=== PATIENT | male | born 1960 | race Caucasian/White ===

== ENCOUNTER 2017-10-20 22:00 | Emergency (ER) | payer MEDICAID, OTHER ==
[2017-10-20] MEDS ORDERED: LET GEL TOPICAL 1 EA SYR TP ONE ×2 (22:05→22:16)
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
[2017-10-20] MEDS ORDERED: NS 1,000 ML IV ONE (22:34)
[2017-10-20 23:51] VITALS: BP 140/96
== END 2017-10-20 23:52 | disposition home or self-care (01) ==
LOC: EDUNIT#
DX: S09.90XA Unspecified injury of head, initial encounter (principal); S19.9XXA Unspecified injury of neck, initial encounter; S40.811A Abrasion of right upper arm, initial encounter; S50.811A Abrasion of right forearm, initial encounter; S70.211A Abrasion, right hip, initial encounter; S60.312A Abrasion of left thumb, initial encounter; E86.9 Volume depletion, unspecified; V17.4XXA Pedal cycle driver injured in collision with fixed or stationary object in traffic accident, initial encounter; Y92.410 Unspecified street and highway as the place of occurrence of the external cause; Y99.8 Other external cause status; Y93.55 Activity, bike riding